=== PATIENT | female | born 1990 | race Caucasian/White ===

== ENCOUNTER → 2017-12-13 21:08 | Observation (INO) ==
[2017-12-13 18:12] LABS: Bilirubin,Urine Negative (Negative); Blood,Urine Negative (Negative); Clarity,Urine Cloudy (Clear); Color,Urine Yellow (Yellow); Glucose,Urine (UA) Normal (Normal); Ketones,Urine Trace mg/dL (Negative); Leukocyte Esterase,Urine Negative (Negative); Nitrite,Urine Negative (Negative); Protein,Urine 30 mg/dL (Neg-Trace); Specific Gravity,Urine 1.022 (1.010-1.025); Urobilinogen,Urine Normal (Normal)
[2017-12-13 18:14] LABS: Bacteria,Urine None Seen per hpf (None-Few); Hyaline Casts,Urine None Seen per lpf (None-Few); RBC,Urine 0-3 per hpf (0-3); Squamous Epithelial Cell,Urine Many per lpf (None-Few); WBC,Urine 0-3 per hpf (0-3)
[2017-12-13 18:23] LABS: Amphetamine Screen,Urine Negative ng/mL (Cutoff=1000); Barbiturate Screen,Urine Negative ng/mL (Cutoff=200); Benzodiazepines Screen,Urine Negative ng/mL (Cutoff=200); Cannabinoid Screen,Urine Negative ng/mL (Cutoff = 50); Cocaine Screen,Urine Negative ng/mL (Cutoff= 300); Creatinine,Urine 84 mg/dL; Opiate Screen,Urine Negative ng/mL (Cutoff=300); Phencyclidine Screen,Urine Negative ng/mL (Cutoff=25); Protein/Creatinine Ratio,Urine 0.55 mg/mg (0.00-0.20)
[2017-12-13 19:25] LABS: Basophils % 0.3 %; Eosinophils # 0.1 K/mcL (0.0-0.6); Eosinophils % 0.7 %; Hematocrit 35.9 % (35.3-44.9); Hemoglobin 12.3 g/dL (11.5-15.4); Immature Granulocytes % 0.7 % (0-4); Lymphocytes # 2.4 K/mcL (0.6-4.6); Lymphocytes % 18.2 %; Mean Corpuscular HGB Conc 34.3 g/dL (31.6-35.5); Mean Corpuscular Hemoglobin 28.9 pg (28.0-33.3); Mean Corpuscular Volume 84.5 fL (83.0-100.0); Mean Platelet Volume 10.6 fL (9.4-12.4); Monocytes # 0.8 K/mcL (0.0-1.3); Monocytes % 5.8 %; Neutrophils # 9.9 K/mcL (1.6-8.9); Platelet Count 234 K/mcL (140-400); Red Blood Count 4.25 M/mcL (3.82-4.97); Red Cell Distribution Width 13.3 % (11.5-14.5); Segmented Neutrophils % 74.3 %
[2017-12-13 19:54] LABS: Alanine Aminotransferase 19 Units/L (7-52); Aspartate Amino Transferase 22 Units/L (13-39); BUN/Creatinine Ratio 19 (6-26); Blood Urea Nitrogen 8 mg/dL (6-20); Lactate Dehydrogenase 154 Units/L (140-271); Uric Acid 4.2 mg/dL (2.3-7.6); eGFR For African Americans > 60 (> 60); eGFR For Non-African Americans > 60 (> 60)
--- NOTE | 2017-12-13 20:40 | OB/GYN Progress Note ---
Date of Encounter: 12/13/17 Time of Encounter: 20:37 - Assessment and Plan (1) with abdominal pain of right upper quadrant, antepartum Current Visit: Yes Status: Acute UA - mild dehydration; 1000mL fluid bolus given UPC - 0.55 PIH labs - WNL CBC - WNL NST - Reactive BPs normal Discussed POC with Dr Vaughan Discharged home with PTL, Pre-E precautions, kick counts, encouraged increased oral hydration Follow up in office on Sunday for NST and ; patient to call tomorrow to schedule/nurse sent note to call patient as well Discussed when to return to triage; patient and repeat when to return and verbalize understanding. Deny any additional questions (2) 36 weeks gestation of Current Visit: Yes Status: Acute Subjective - Subjective Principal diagnosis: RUQ pain Interval history: Ms Johnson presents to triage with c/o RUQ pain for the past few days that has worsened over the week. She states that pain is a 3-7/10. She states she has had a soo and has been taking OTC antacids regularly for the past few weeks. She has had an uncomplicated first . She is seen by Dr Escamilla for her care. She denies headache, vision changes, facial edema that persists throughout the day, vaginal bleeding, contractions, and vaginal discharge. She states positive movement. Antepartum ROS: new complaints (RUQ pain), movement normal Objective - Exam FHR: auscultation normal, category 1 Auscultation: bilateral: normal Abdomen: Present: normal appearance, soft, gravid. Absent: tenderness Uterus: Present: normal. Absent: firm, bogginess, tenderness Cervical dilation: FT Cervix effacement: 70 station: -1/0 - Labs Labs: Abnormal lab results WBC 13.3 K/mcL (4.3-11.1) H 12/13/17 19:14 Neutrophils # 9.9 K/mcL (1.6-8.9) H 12/13/17 19:14 Creatinine 0.43 mg/dL (0.60-1.20) L 12/13/17 19:14 Urine Clarity Cloudy (Clear) A 12/13/17 17:59 Urine Protein 30 mg/dL (Neg-Trace) H 12/13/17 17:59 Urine Ketones Trace mg/dL (Negative) H 12/13/17 17:59 Ur Squamous Epith Cells Many per lpf (None-Few) H 12/13/17 17:59 Protein/Creatinin Ratio 0.55 mg/mg (0.00-0.20) H 12/13/17 17:59 Urine Total Protein 46 mg/dL (1-14) H 12/13/17 17:59
[~2017-12-13 21:08] MED LIST: Ringers Solution, Lactated 1,000 ML IVC SCH
== END | disposition home or self-care (01) ==
LOC: 1NENULAB
PROVIDERS: ADMIT Advanced Practice Midwife; ATTEND Advanced Practice Midwife

== ENCOUNTER → 2017-12-15 13:24 | Observation (INO) ==
[2017-12-15 12:24] LABS: Basophils % 0.3 %; Eosinophils # 0.1 K/mcL (0.0-0.6); Eosinophils % 0.5 %; Hematocrit 39.4 % (35.3-44.9); Hemoglobin 13.2 g/dL (11.5-15.4); Immature Granulocytes % 0.6 % (0-4); Lymphocytes % 16.8 %; Mean Corpuscular HGB Conc 33.5 g/dL (31.6-35.5); Mean Corpuscular Hemoglobin 28.4 pg (28.0-33.3); Mean Corpuscular Volume 84.7 fL (83.0-100.0); Mean Platelet Volume 10.5 fL (9.4-12.4); Monocytes # 0.7 K/mcL (0.0-1.3); Monocytes % 6.1 %; Neutrophils # 8.9 K/mcL (1.6-8.9); Platelet Count 257 K/mcL (140-400); Red Blood Count 4.65 M/mcL (3.82-4.97); Red Cell Distribution Width 13.2 % (11.5-14.5); Segmented Neutrophils % 75.7 %
[2017-12-15 12:25] LABS: Bilirubin,Urine Negative (Negative); Blood,Urine Negative (Negative); Clarity,Urine Cloudy (Clear); Color,Urine Yellow (Yellow); Glucose,Urine (UA) Normal (Normal); Ketones,Urine Trace mg/dL (Negative); Leukocyte Esterase,Urine Small (Negative); Nitrite,Urine Negative (Negative); PH,Urine 6.5 pH Units (5.0-8.0); Protein,Urine Trace mg/dL (Neg-Trace); Specific Gravity,Urine 1.011 (1.010-1.025); Urobilinogen,Urine Normal (Normal)
[2017-12-15 12:27] LABS: Bacteria,Urine Few per hpf (None-Few); Hyaline Casts,Urine Few per lpf (None-Few); RBC,Urine 0-3 per hpf (0-3); Squamous Epithelial Cell,Urine Many per lpf (None-Few); WBC,Urine 15-30 per hpf (0-3)
[2017-12-15 12:43] LABS: Alanine Aminotransferase 21 Units/L (7-52); Aspartate Amino Transferase 26 Units/L (13-39); BUN/Creatinine Ratio 11 (6-26); Blood Urea Nitrogen 6 mg/dL (6-20); Lactate Dehydrogenase 164 Units/L (140-271); Uric Acid 4.9 mg/dL (2.3-7.6); eGFR For African Americans > 60 (> 60); eGFR For Non-African Americans > 60 (> 60)
[2017-12-15 12:51] LABS: Protein/Creatinine Ratio,Urine 0.63 mg/mg (0.00-0.20)
[2017-12-15 12:52] LABS: Amphetamine Screen,Urine Negative ng/mL (Cutoff=1000); Barbiturate Screen,Urine Negative ng/mL (Cutoff=200); Benzodiazepines Screen,Urine Negative ng/mL (Cutoff=200); Cannabinoid Screen,Urine Negative ng/mL (Cutoff = 50); Cocaine Screen,Urine Negative ng/mL (Cutoff= 300); Opiate Screen,Urine Negative ng/mL (Cutoff=300); Phencyclidine Screen,Urine Negative ng/mL (Cutoff=25)
--- NOTE | 2017-12-15 13:16 | Discharge Summary ---
Date of Encounter: 12/15/17 Time of Encounter: 13:15 - Discharge Diagnosis (1) Proteinuria affecting in third trimester Priority: Primary Status: Acute Comments: Patient give supplies and instructions for 24 hour urine Patient to take urine to lab on Sunday12/17/17 (2) 36 weeks gestation of Priority: Secondary Status: Acute Comments: Patient admitted for observation. (3) NST (non-stress test) reactive on surveillance Priority: Secondary Status: Acute Comments: FHR baseline 125 bpm moderate variability +15x15 accels no decels noted. Cat. 1 tracing. - Discharge Medications Home Medications: Dha 1 tab PO DAILY 06/26/17 [History] Allergies/Adverse Reactions: 3 Allergy/AdvReac Type Severity Reaction Status Date / Time Amoxicillin Allergy Mild Hives Verified 12/13/17 17:51 bacitracin Allergy Mild Hives Verified 12/13/17 17:51 [From Neosporin ([id number])] Neomycin Allergy Mild Hives Verified 12/13/17 17:51 [From Neosporin ([id number])] Penicillins Allergy Mild Hives Verified 12/13/17 17:51 polymyxin B Allergy Mild Hives Verified 12/13/17 17:51 [From Neosporin ([id number])] egg Allergy Diarrhea Verified 12/13/17 17:51 Data Procedures and tests throughout hospitalization: Laboratory Tests 12/15/17 12/15/17 12/15/17 11:51 11:51 12:08 WBC 11.8 H RBC 4.65 Hgb 13.2 Hct 39.4 MCV 84.7 MCH 28.4 MCHC 33.5 RDW 13.2 Plt Count 257 MPV 10.5 Immature Gran % 0.6 Seg Neutrophils % 75.7 Lymphocytes % 16.8 Monocytes % 6.1 Eosinophils % 0.5 Basophils % 0.3 Neutrophils # 8.9 Lymphocytes # 2.0 Monocytes # 0.7 Eosinophils # 0.1 Basophils # 0.0 BUN 6 Creatinine 0.54 L Est GFR ( Amer) > 60 Est GFR (Non-Af Amer) > 60 BUN/Creatinine Ratio 11 Uric Acid 4.9 AST 26 ALT 21 Lactate Dehydrogenase 164 Urine Color Urine Clarity Urine pH Ur Specific [place] Urine Protein Urine Glucose (UA) Urine Ketones Urine Blood Urine Nitrite Urine Bilirubin Urine Urobilinogen Ur Leukocyte Esterase Urine Microscopic RBC Urine Microscopic WBC Ur Squamous Epith Cells Urine Bacteria Hyaline Casts Ur Culture Indicated? Urine Creatinine Protein/Creatinin Ratio Urine Total Protein Urine Opiates Screen Negative Ur Barbiturates Screen Negative Ur Phencyclidine Scrn Negative Ur Amphetamines Screen Negative U Benzodiazepines Scrn Negative Urine Cocaine Screen Negative U Marijuana (THC) Screen Negative 12/15/17 12/15/17 12:08 12:08 WBC RBC Hgb Hct MCV MCH MCHC RDW Plt Count MPV Immature Gran % Seg Neutrophils % Lymphocytes % Monocytes % Eosinophils % Basophils % Neutrophils # Lymphocytes # Monocytes # Eosinophils # Basophils # BUN Creatinine Est GFR ( Amer) Est GFR (Non-Af Amer) BUN/Creatinine Ratio Uric Acid AST ALT Lactate Dehydrogenase Urine Color Yellow Urine Clarity Cloudy A Urine pH 6.5 Ur Specific [place] 1.011 Urine Protein Trace Urine Glucose (UA) Normal Urine Ketones Trace H Urine Blood Negative Urine Nitrite Negative Urine Bilirubin Negative Urine Urobilinogen Normal Ur Leukocyte Esterase Small H Urine Microscopic RBC 0-3 Urine Microscopic WBC 15-30 H Ur Squamous Epith Cells Many H Urine Bacteria Few Hyaline Casts Few Ur Culture Indicated? NO. A Urine Creatinine 59 Protein/Creatinin Ratio 0.63 H Urine Total Protein 37 H Urine Opiates Screen Ur Barbiturates Screen Ur Phencyclidine Scrn Ur Amphetamines Screen U Benzodiazepines Scrn Urine Cocaine Screen U Marijuana (THC) Screen Labs on day of discharge: Labs from last 24 hours 12/15/17 12/15/17 12/15/17 12:08 12:08 12:08 WBC RBC Hgb Hct MCV MCH MCHC RDW Plt Count MPV Immature Gran % Seg Neutrophils % Lymphocytes % Monocytes % Eosinophils % Basophils % Neutrophils # Lymphocytes # Monocytes # Eosinophils # Basophils # BUN Creatinine Est GFR ( Amer) Est GFR (Non-Af Amer) BUN/Creatinine Ratio Uric Acid AST ALT Lactate Dehydrogenase Urine Color Yellow Urine Clarity Cloudy A Urine pH 6.5 Ur Specific [place] 1.011 Urine Protein Trace Urine Glucose (UA) Normal Urine Ketones Trace H Urine Blood Negative Urine Nitrite Negative Urine Bilirubin Negative Urine Urobilinogen Normal Ur Leukocyte Esterase Small H Urine Microscopic RBC 0-3 Urine Microscopic WBC 15-30 H Ur Squamous Epith Cells Many H Urine Bacteria Few Hyaline Casts Few Ur Culture Indicated? NO. A Urine Creatinine 59 Protein/Creatinin Ratio 0.63 H Urine Total Protein 37 H Urine Opiates Screen Negative Ur Barbiturates Screen Negative Ur Phencyclidine Scrn Negative Ur Amphetamines Screen Negative U Benzodiazepines Scrn Negative Urine Cocaine Screen Negative U Marijuana (THC) Screen Negative 12/15/17 12/15/17 11:51 11:51 WBC 11.8 H RBC 4.65 Hgb 13.2 Hct 39.4 MCV 84.7 MCH 28.4 MCHC 33.5 RDW 13.2 Plt Count 257 MPV 10.5 Immature Gran % 0.6 Seg Neutrophils % 75.7 Lymphocytes % 16.8 Monocytes % 6.1 Eosinophils % 0.5 Basophils % 0.3 Neutrophils # 8.9 Lymphocytes # 2.0 Monocytes # 0.7 Eosinophils # 0.1 Basophils # 0.0 BUN 6 Creatinine 0.54 L Est GFR ( Amer) > 60 Est GFR (Non-Af Amer) > 60 BUN/Creatinine Ratio 11 Uric Acid 4.9 AST 26 ALT 21 Lactate Dehydrogenase 164 Urine Color Urine Clarity Urine pH Ur Specific [place] Urine Protein Urine Glucose (UA) Urine Ketones Urine Blood Urine Nitrite Urine Bilirubin Urine Urobilinogen Ur Leukocyte Esterase Urine Microscopic RBC Urine Microscopic WBC Ur Squamous Epith Cells Urine Bacteria Hyaline Casts Ur Culture Indicated? Urine Creatinine Protein/Creatinin Ratio Urine Total Protein Urine Opiates Screen Ur Barbiturates Screen Ur Phencyclidine Scrn Ur Amphetamines Screen U Benzodiazepines Scrn Urine Cocaine Screen U Marijuana (THC) Screen Date of admission: 12/15/17 11:42 Discharging clinician: Li Guerra Anticipated date of discharge: 12/15/17 - Patient Status Disposition: Home, Self-Care Condition: Good Functional capacity at discharge: independent ambulation - Discharge Instructions Follow Up With: Syeda Escamilla MD [Partnered Physician] - - Diet and Activity Activity: increase activity as tolerated Diet: regular diet Hospital Course CIRCULATOR Hospital course: Patient is a 27 y/o at 36w2d presents to labor and delivery with complaints of seeing flashing lights and feeling dizzy while attending childbirth education class. Patient reports she drank a cup of water and had cheerios for breakfast. Patient denies headache at this time. Patient reports low back pain and lower abdominal cramping. Patient also reports +FM. Patient denies any vaginal bleeding or leaking of fluid. Patient reports she was a fingertip at last appointment. BPs WNL. Lab work discussed with Dr. Escamilla. Will send patient home with supplies and directions for 24 hour urine to turn in on Sunday12/17/17. SVE today was FT and Thick. FHR 125 bpm moderate variability +15x15 accels no decels noted. Contractions are irregular. Cat. 1 tracing. Time Attestation: Total time spent providing and/or coordinating discharge services: Time Spent: Less than 30 minutes Exam - Constitutional General appearance IM: A&O X 3, pleasant, answers questions appropriately - Respiratory Respiratory exam: Present: CTAB - Cardiovascular Cardiovascular exam IM: Present: RRR, +S1, +S2 - GI/Abdominal GI/Abdominal exam IM: normal bowel sounds - Extremities Exam Extremities exam IM: Present: full ROM, normal capillary refill, normal inspection - Neurological Exam Neurological exam: alert, oriented X3, reflexes normal - VTE Reasons for not Prescribing Prophylaxis: Treatment not Indicated - Low risk for VTE
== END | disposition home or self-care (01) ==
LOC: 1NENULAB
PROVIDERS: ADMIT Advanced Practice Midwife; ATTEND Advanced Practice Midwife

== ENCOUNTER 2017-12-20 06:00 | Inpatient (IN) ==
[2017-12-20] MEDS ORDERED: miSOPROStol 25 MCG TABLET PO PRN (06:36)
[2017-12-20] MEDS ORDERED: Ondansetron 4 MG/2 ML VIAL IVP PRN (06:36)
[2017-12-20] MEDS ORDERED: Naloxone 0.4 MG/ML INJ IVP PRN (06:36)
[2017-12-20] MEDS ORDERED: Metoclopramide 10 MG/2 ML VIAL IVP PRN (06:36)
[2017-12-20] MEDS ORDERED: Famotidine 20 MG/2 ML VIAL IVP PRN (06:36)
[2017-12-20] MEDS ORDERED: *HR* Nalbuphine 10 MG/ML AMPUL IVP PRN (06:36)
--- NOTE | 2017-12-20 06:39 | OB/GYN History & Physical ---
Date of Encounter: 12/20/17 Time of Encounter: 06:38 Assessment and Plan (1) 37 weeks gestation of Current visit: Yes Status: Acute Plan for IOL. complicated by proteinuria. Patient given cytotec. (2) Proteinuria affecting in third trimester Current visit: No Status: Acute History of Present Illness Chief complaint: Induction of Labor HPI: Ms. Johnson is a 27 year old female at 37w0d presents to L&D for induction of labor. complicated by proteinuria with protein/Cr was 0.63 at its highest on 12/15/17, most recent.was 0.34 on 12/17/17. + good FM. Denies LOF or VB. Denies headaches, vision changes. History of BLE edema during . Labs: Blood type A+ Rubella immune Hepatitis nonreactive T. pallidum negative Varicella positive GBS negative Past Med Surg Social Fam HX - Past Medical History Medical history: other Psychiatric history: no psych history - Past Surgical History Surgical History: cholecystectomy - Social History Smoking Status: Never smoker Smokeless Tobacco Status: No Alcohol use: none Drug use: none - Family History Mother Adopted: No Family Member Ethnicity: Non- Living Status: Still Living Hx Family Cardiac Disorders: Yes Hx Family Respiratory Disorders: No Hx Family Cancer: Yes Hx Family GI Disorders: No Hx Family Genitourinary Disorders: No Hx Family Endocrine Disorder: No Hx Family Musculoskeletal Disorders: No Hx Family Neuromuscular Disorders: No Hx Family Neurologic Disorders: No Hx Family HEENT Disorders: No Hx Family Autoimmune Disorders: No Hx Family Reproductive Disorders: No Hx Family Psychosocial Disorders: No Hx Family Medical Disorders: No Obstetrical History - Pregnancies : 1 Para: 0 Medications and Allergies Dha 1 tab PO DAILY 06/26/17 [History] 3 Allergy/AdvReac Type Severity Reaction Status Date / Time Amoxicillin Allergy Mild Hives Verified 12/13/17 17:51 bacitracin Allergy Mild Hives Verified 12/13/17 17:51 [From Neosporin ([id number])] Neomycin Allergy Mild Hives Verified 12/13/17 17:51 [From Neosporin ([id number])] Penicillins Allergy Mild Hives Verified 12/13/17 17:51 polymyxin B Allergy Mild Hives Verified 12/13/17 17:51 [From Neosporin ([id number])] egg Allergy Diarrhea Verified 12/13/17 17:51 Review of System OB All systems PM: reviewed and no additional remarkable complaints except as stated Exam - Constitutional Constitutional: well developed, well nourished, no acute distress - HEENT HEENT: Normocephaly, Mucus Membranes Moist - Neck Neck exam: normal inspection, supple - Lungs Respiratory exam: CTAB - Cardiovascular Cardiovascular exam: RRR, +S1, +S2 - Abdomen Abdomen: Present: bowel sounds normal, gravid, non tender - Extremities Extremities exam: pedal edema (1+ bilateral) Deep Tendon Reflex Grade: 2+ Normal Results Result Diagrams: 12/20/17 07:00 12/20/17 07:00 All other labs normal.
[2017-12-20] MEDS ORDERED: Ringers Solution, Lactated 1,000 ML IVC SCH (06:45)
[2017-12-20 06:56] LABS: Amphetamine Screen,Urine Negative ng/mL (Cutoff=1000); Barbiturate Screen,Urine Negative ng/mL (Cutoff=200); Benzodiazepines Screen,Urine Negative ng/mL (Cutoff=200); Cannabinoid Screen,Urine Negative ng/mL (Cutoff = 50); Cocaine Screen,Urine Negative ng/mL (Cutoff= 300); Opiate Screen,Urine Negative ng/mL (Cutoff=300); Phencyclidine Screen,Urine Negative ng/mL (Cutoff=25)
[2017-12-20 07:18] LABS: Basophils % 0.3 %; Eosinophils # 0.1 K/mcL (0.0-0.6); Eosinophils % 1.1 %; Hematocrit 35.7 % (35.3-44.9); Hemoglobin 12.6 g/dL (11.5-15.4); Immature Granulocytes % 0.6 % (0-4); Lymphocytes # 1.6 K/mcL (0.6-4.6); Lymphocytes % 15.2 %; Mean Corpuscular HGB Conc 35.3 g/dL (31.6-35.5); Mean Corpuscular Hemoglobin 29.7 pg (28.0-33.3); Mean Corpuscular Volume 84.2 fL (83.0-100.0); Mean Platelet Volume 10.9 fL (9.4-12.4); Monocytes # 0.6 K/mcL (0.0-1.3); Monocytes % 6.1 %; Neutrophils # 7.9 K/mcL (1.6-8.9); Platelet Count 235 K/mcL (140-400); Red Blood Count 4.24 M/mcL (3.82-4.97); Red Cell Distribution Width 13.2 % (11.5-14.5); Segmented Neutrophils % 76.7 %
[2017-12-20] MEDS ORDERED: Epidural Premix (fent/bupiv) 110 ML EP SCH (07:30)
[2017-12-20 07:38] LABS: Alanine Aminotransferase 16 Units/L (7-52); Aspartate Amino Transferase 21 Units/L (13-39); BUN/Creatinine Ratio 13 (6-26); Blood Urea Nitrogen 6 mg/dL (6-20); Lactate Dehydrogenase 143 Units/L (140-271); Uric Acid 4.7 mg/dL (2.3-7.6); eGFR For African Americans > 60 (> 60); eGFR For Non-African Americans > 60 (> 60)
--- NOTE | 2017-12-20 08:11 | Anesthesia Evaluation PreOp ---
Date of Encounter: 12/20/17 Time of Encounter: 07:50 - Past History Planned Operation: vaginal del, G1 37wk Cardiac History: Denies any Significant Hx Pulmonary History: Denies Any Significant HX PHOTOGRAPHER HELPER History: Other (BMI 36) Other Medical History: Other (proteinuria, upper quad pain, peripheral edema 37wk induction) Anesthesia History: No Prior Anesthetic Complications, Past Anesthesia Alcohol Use: none Drug use: none Medications and Allergies Dha 1 tab PO DAILY 06/26/17 [History] 3 Allergy/AdvReac Type Severity Reaction Status Date / Time Amoxicillin Allergy Mild Hives Verified 12/13/17 17:51 bacitracin Allergy Mild Hives Verified 12/13/17 17:51 [From Neosporin ([id number])] Neomycin Allergy Mild Hives Verified 12/13/17 17:51 [From Neosporin ([id number])] Penicillins Allergy Mild Hives Verified 12/13/17 17:51 polymyxin B Allergy Mild Hives Verified 12/13/17 17:51 [From Neosporin ([id number])] egg Allergy Diarrhea Verified 12/13/17 17:51 Anesthesia Results - Labs 12/20/17 07:00 12/20/17 07:00 Anesthesia Exam - HEENT Pupil (Motor): Pupils equal Mallampati: II Teeth: Normal Oral Opening: Greater than 3 - PHOTOGRAPHER HELPER LOC: Oriented PHOTOGRAPHER HELPER Motor: Normal RUE, Normal LUE, Normal RLE, Normal LLE, Normal Face PHOTOGRAPHER HELPER Sensory: Normal: RUE, LUE, RLE, LLE, Face - Cardiac Rhythm: Regular Murmur: None - Pulmonary Breath Sounds: bilateral Clear Respiratory Effort: Symmetrical Anesthesia Assess/Plan ASA Score: 2 Modified [place] Scale for Level of Consciousness: Cooperative, oriented, and tranquil Anesthetic Plan: General, Regional Monitoring Plan: Standard Monitors Recovery Plan: PACU
--- NOTE | 2017-12-20 12:04 | OB Labor Progress Note ---
Date of Encounter: 12/20/17 Time of Encounter: 12:03 Labor Progress Note - Subjective Subjective: Pt states feeling some contractions - Cervix Cervix: 2/80/-2 - Heart Tones Heart Tones: 135/moderate/+accels/-decels - Interventions Interventions: Cervical moreno placed - Plan Plan: Continue current management plan Nuabin and epidural as desired GBS- Anticipate
--- NOTE | 2017-12-20 16:34 | OB/GYN Procedure Note ---
Delivery - Delivery Date: 12/20/17 Provider: Lisandra Trotter Intrapartum events: none Delivery induction: none Delivery monitor: external FHT, external uterine, internal FHT, internal uterine Anesthesia: epidural Quantitated Blood Loss: 150 - Infant (s) Infant A Infant Delivery Date: 12/20/17 Infant Delivery Time: 15:43 Presentation: vertex Position: OA Route of delivery: Gender: Female Viability: Viable Pounds: 6 Ounces: 5 Weight Gram: 2880 kg at 1 minute: 4 at 5 mins: 9 Shoulder Dystocia: not encountered Specimens collected: cord blood, venous cord gases, arterial cord gases Placenta: spontaneous Cord: 3 umbilical vessels - Repair Episiotomy: none Laceration Description: None - Complications Delivery complications: none - Disposition Mom disposition: stable in LDR [place] disposition: stable in LDR
[2017-12-20] MEDS ORDERED: Oxytocin 20 units/ LR 1000 mL 20 UNIT/1,000 ML BAG IVC SCH (18:30)
--- NOTE | 2017-12-20 20:13 | OB Labor Progress Note ---
Date of Encounter: 12/20/17 Time of Encounter: 20:13 Labor Progress Note - Subjective Subjective: Pt states feeling stronger contractions - Cervix Cervix: 4-5/80/-1 - Heart Tones Heart Tones: 145/moderate/+accels/-decels - [place]: 2-4 - Interventions Interventions: AROM at 1847 for clear fluid. - Plan Plan: Start pitocin per policy nuabin and epidural as desires Anticipate
[2017-12-20] MEDS ORDERED: Epidural Premix (fent/bupiv) 110 ML EP ONE (20:31)
[2017-12-20] MEDS ORDERED: Lidocaine/EPI 1:200k 2% PF 20 ML VIAL ONE (21:08)
[2017-12-20] MEDS ORDERED: Ringers Solution, Lactated 1,000 ML ONE (21:53)
--- NOTE | 2017-12-20 22:11 | Anesthesia Procedures ---
Date of Encounter: 12/20/17 Time of Encounter: 20:39 Procedures: Anesthesia - Epidural/Spinal Patient ID/Chart reviewed: Yes Patient examined: Yes OB Eval: Gestational age: 37 OB Eval: : 1 OB Eval: Contractions: Non-stressed pattern Consent Obtained: Yes Supplemental Oxygen: None/Room Air Site Prep: Aseptic Technique, Sterile prep and drape, 0.5% Chlorhexidine/Alcohol Patient position: upright Local Anesthetic: Lidocaine 1% Amount of Local Anesthetic used: 2 Touhy Needle Gauge: 18 Touhy Needle Depth (cm): 7 Catheter Depth at Skin (cm): 11 Test Dose (1.5% Lido + Epi): Volume given (mls): 3 Test Dose Result: Negative Loading Dose: Other: 10ml from solution Loading Dose Administered: Thru Catheter Infusion Med: 0.125% Bupivacaine w/ 2 mcg/ml Fentanyl Infusion Rate (mls/hr): [address]: Tegaderm, Tape Interspace Used: L3-L4 Loss of Resistance (IVET): Yes (saline) Blood: No CSF: No Paresthesia: No Procedure: vss thought procedures, FHR stable per RN's, 15 min post first epidural, c/o pain lower abd, sensory changes to T6 bilateral , bolus with 7ml of lido 2% with epi, no effect after 15 more min, decision to replace cath to diff level, cath removed with tip intact, complete re-prep as before, same procedure as noted above, cath threaded easy neg aspiration, 3ml lido with epi test dose neg, once sitting back 2ml more lido with epi given, relieve noted within 10min. RN remained at BS FHR monitored.
--- NOTE | 2017-12-21 01:20 | OB Labor Progress Note ---
Date of Encounter: 12/21/17 Time of Encounter: 01:18 Labor Progress Note - Subjective Subjective: Pt comfortable with epidural - Vital Signs Vital Signs: 121/78 - Cervix Cervix: 6/90/-1 - Heart Tones Heart Tones: 135/moderate/+accels/early and late decels - [place] Landen: IUPC placed - Interventions Interventions: IUPC placed - Plan Plan: Continue pitocin per policy anticipate
[2017-12-21] MEDS ORDERED: Epidural Premix (fent/bupiv) 110 ML EP ONE ×2 (01:50→07:58)
[2017-12-21] MEDS ORDERED: *HR* ROPIVACAINE 1% PF 100 MG/10 ML VIAL ONE (02:37)
--- NOTE | 2017-12-21 07:48 | OB Labor Progress Note ---
Date of Encounter: 12/21/17 Time of Encounter: 07:45 Labor Progress Note - Vital Signs Vital Signs: 125/82 - Cervix Cervix: 7/90/-1 - Heart Tones Heart Tones: 140/moderate/+accels/variable, lates - [place]: 2-5 - Plan Plan: Continue pitocin per policy frequent repositioning anticipate
[2017-12-21] MEDS ORDERED: *HR* FentaNYL (PF) 100 MCG/2 ML VIAL ONE (08:11)
[2017-12-21] MEDS ORDERED: *HR* Ropivacaine/PF 0.2% 20 ML VIAL ONE (08:11)
--- NOTE | 2017-12-21 08:20 | Anesthesia Progress Note ---
Date of Encounter: 12/21/17 Time of Encounter: 08:18 Anesthesia Note - Note Note: 12/21/17 08:18 bolus for break through pain ropivicaine 0.2% 5cc fentanyl 100mcg
--- NOTE | 2017-12-21 11:33 | OB/GYN Procedure Note ---
Delivery - Delivery Date: 12/21/17 Provider: Li Guerra Intrapartum events: none Delivery induction: AROM, oxytocin, moreno Delivery monitor: external FHT, internal uterine Anesthesia: epidural Quantitated Blood Loss: 200 - Infant (s) A Delivery Date: 12/21/17 Delivery Time: 10:50 Presentation: vertex Position: ROSALIND Route of delivery: Gender: Male Viability: Viable Pounds: 8 Ounces: 3 Weight Gram: 3.715 kg at 1 minute: 8 at 5 mins: 9 Shoulder Dystocia: not encountered Specimens collected: cord blood Placenta: spontaneous, uterine exploration Cord: 3 umbilical vessels - Repair Episiotomy: none Laceration Description: Vaginal (left, repaired with 3-0 vicryl) - Complications Delivery complications: none - Disposition Mom disposition: stable in LDR disposition: stable in LDR - Comments Comments: Called to LDR for SVE. Patient complete and +1. Patient prepped for vaginal delivery and placed in stirrups. Under maternal effort patient spontaneously delivered a viable male infant over an intact perineum. No nuchal cord, meconium or shoulder dystocia encountered. Infant was placed on maternal abdomen. Cord was clamped and cut after pulsation ceased. placed skin to skin with mother. A small left vaginal wall abrasion noted and 1 stitch was used to stop bleeding. Pericare provided, all counts correct. Both mother and stable in LDR for recovery.
[2017-12-21] MEDS ORDERED: Benzocaine/Menthol 56 GM AEROSOL SPRAY TP PRN (14:49)
[2017-12-21] MEDS ORDERED: Acetaminophen 325 MG TABLET PO PRN (14:49)
[2017-12-21] MEDS ORDERED: Prenatal Vit/FA 1 EACH TABLET PO SCH (14:49)
[2017-12-21] MEDS ORDERED: Lanolin 28 GM TUBE TP PRN (14:49)
[2017-12-21] MEDS ORDERED: Oxytocin 20 units/ LR 1000 mL 20 UNIT/1,000 ML BAG IVC SCH (14:49)
[2017-12-21] MEDS: Ibuprofen 600 MG TABLET PO PRN (21:13)
[2017-12-22 07:54] LABS: Basophils # 0.1 K/mcL (0.0-0.2); Basophils % 0.4 %; Eosinophils # 0.2 K/mcL (0.0-0.6); Eosinophils % 1.1 %; Hematocrit 35.9 % (35.3-44.9); Hemoglobin 11.6 g/dL (11.5-15.4); Immature Granulocytes % 0.5 % (0-4); Lymphocytes # 2.1 K/mcL (0.6-4.6); Lymphocytes % 11.6 %; Mean Corpuscular HGB Conc 32.3 g/dL (31.6-35.5); Mean Corpuscular Hemoglobin 28.4 pg (28.0-33.3); Mean Corpuscular Volume 87.8 fL (83.0-100.0); Mean Platelet Volume 11.2 fL (9.4-12.4); Monocytes # 1.2 K/mcL (0.0-1.3); Monocytes % 6.7 %; Neutrophils # 14.6 K/mcL (1.6-8.9); Platelet Count 211 K/mcL (140-400); Red Blood Count 4.09 M/mcL (3.82-4.97); Red Cell Distribution Width 13.7 % (11.5-14.5); Segmented Neutrophils % 79.7 %
[2017-12-22 08:25] VITALS: BP 111/77
--- NOTE | 2017-12-22 10:28 | Discharge Summary ---
Date of Encounter: 12/22/17 Time of Encounter: 10:26 - Discharge Diagnosis (1) Vaginal delivery Priority: Primary Status: Acute Comments: Feeling well-pain well controlled with by mouth pain meds Tolerating regular diet Voiding independently Passing flatus, but no BM yet Lochia light Using ice packs for perineum Ambulating independently Discharge home today (2) Breast feeding status of mother Priority: Secondary Status: Acute Comments: Breast pump Rx given when necessary Breast-feeding well - Discharge Medications Prescriptions: Ibuprofen [Motrin] 600 mg PO Q6HR PRN #30 tablet PRN Reason: Cramping Breast Pump [BREAST PUMP] 1 each .ROUTE AD #1 each Docusate [Colace] 100 mg PO BID #60 capsule Home Medications: Dha 1 tab PO DAILY 06/26/17 [History] Acetaminophen [Tylenol] 650 mg PO Q6HR PRN tablet 12/22/17 [Rx] Benzocaine/Menthol Blanco [Dermoplast Blanco] 1 appl TP QID PRN aerosol 12/22/17 [Rx] Breast Pump [BREAST PUMP] 1 each .ROUTE AD #1 each 12/22/17 [Rx] Docusate [Colace] 100 mg PO BID #60 capsule 12/22/17 [Rx] Ibuprofen [Motrin] 600 mg PO Q6HR PRN #30 tablet 12/22/17 [Rx] Lanolin 1 appl TP QID PRN tube 12/22/17 [Rx] Allergies/Adverse Reactions: 3 Allergy/AdvReac Type Severity Reaction Status Date / Time Amoxicillin Allergy Mild Hives Verified 12/13/17 17:51 bacitracin Allergy Mild Hives Verified 12/13/17 17:51 [From Neosporin ([id number])] Neomycin Allergy Mild Hives Verified 12/13/17 17:51 [From Neosporin ([id number])] Penicillins Allergy Mild Hives Verified 12/13/17 17:51 polymyxin B Allergy Mild Hives Verified 12/13/17 17:51 [From Neosporin ([id number])] egg Allergy Diarrhea Verified 12/13/17 17:51 Data Procedures and tests throughout hospitalization: Laboratory Tests 12/20/17 12/20/17 12/20/17 06:30 07:00 07:00 WBC 10.3 RBC 4.24 Hgb 12.6 Hct 35.7 MCV 84.2 MCH 29.7 MCHC 35.3 RDW 13.2 Plt Count 235 MPV 10.9 Immature Gran % 0.6 Seg Neutrophils % 76.7 Lymphocytes % 15.2 Monocytes % 6.1 Eosinophils % 1.1 Basophils % 0.3 Neutrophils # 7.9 Lymphocytes # 1.6 Monocytes # 0.6 Eosinophils # 0.1 Basophils # 0.0 BUN 6 Creatinine 0.47 L Est GFR ( Amer) > 60 Est GFR (Non-Af Amer) > 60 BUN/Creatinine Ratio 13 Uric Acid 4.7 AST 21 ALT 16 Lactate Dehydrogenase 143 Urine Opiates Screen Negative Ur Barbiturates Screen Negative Ur Phencyclidine Scrn Negative Ur Amphetamines Screen Negative U Benzodiazepines Scrn Negative Urine Cocaine Screen Negative U Marijuana (THC) Screen Negative Hep Bs Antigen 12/20/17 12/22/17 19:06 06:55 WBC 18.3 H D RBC 4.09 Hgb 11.6 Hct 35.9 MCV 87.8 MCH 28.4 MCHC 32.3 RDW 13.7 Plt Count 211 MPV 11.2 Immature Gran % 0.5 Seg Neutrophils % 79.7 Lymphocytes % 11.6 Monocytes % 6.7 Eosinophils % 1.1 Basophils % 0.4 Neutrophils # 14.6 H Lymphocytes # 2.1 Monocytes # 1.2 Eosinophils # 0.2 Basophils # 0.1 BUN Creatinine Est GFR ( Amer) Est GFR (Non-Af Amer) BUN/Creatinine Ratio Uric Acid AST ALT Lactate Dehydrogenase Urine Opiates Screen Ur Barbiturates Screen Ur Phencyclidine Scrn Ur Amphetamines Screen U Benzodiazepines Scrn Urine Cocaine Screen U Marijuana (THC) Screen Hep Bs Antigen Nonreactive Labs on day of discharge: Labs from last 24 hours 12/22/17 06:55 WBC 18.3 H D RBC 4.09 Hgb 11.6 Hct 35.9 MCV 87.8 MCH 28.4 MCHC 32.3 RDW 13.7 Plt Count 211 MPV 11.2 Immature Gran % 0.5 Seg Neutrophils % 79.7 Lymphocytes % 11.6 Monocytes % 6.7 Eosinophils % 1.1 Basophils % 0.4 Neutrophils # 14.6 H Lymphocytes # 2.1 Monocytes # 1.2 Eosinophils # 0.2 Basophils # 0.1 Date of admission: 12/20/17 06:19 Primary care physician: Mindi Stroud MD Consults: 12/21/17 14:49 Consult to Screener Perfumer [CONS] Routine Comment: Vaginal delivery, consult needed Discharging clinician: Denae Roth Anticipated date of discharge: 12/22/17 - Patient Status Disposition: Home, Self-Care Condition: Good Functional capacity at discharge: independent ambulation Overall status at discharge: patient is progressing back to baseline - Discharge Instructions Instructions: Your Cullen's Appearance (DC), Caring for Your Baby (GEN), Lay Person CPR on Newborns (DC), Caring for Your Breastfed Baby (GEN) Follow Up With: Mindi Stroud MD [Primary Care Provider] - Syeda Escamilla MD [Partnered Physician] - Additional Instructions: ATTEND FOLLOW-UP APPOINTMENT Perineal Care: Always wipe front to back Change your pad frequently Use your joe bottle with warm water and spray front to back Do not douche, use tampons, have sexual intercourse or put anything in your vagina for 4-6 weeks after delivery Bleeding: Vaginal bleeding can last up to 6 weeks Your menstrual period may return as early as 6 weeks after you are discharged from the hospital [place]/Stitches Care: Vaginal Delivery Vaginal stitches will dissolve within 4-6 weeks Follow perineal care instructions Care Stitches will dissolve on their own If you have zoltan, they will need to be removed in the doctors office within 5-7 days. You may shower with stitches or zoltan Drip plan or soapy water over the incision to clean. Pat dry gently with a clean towel. Make sure you completely dry under the skin folds DO NOT USE powders, lotions, rubbing alcohol or hydrogen peroxide on or around your incision. This will slow your wound healing It is normal to have soreness, burning, tingling, itchiness and/or numbness as your incision heals Activity: Rest frequently Do not lift anything heavier than a gallon of milk, up to 10-15 pounds No driving for 1-2 weeks for Vaginal delivery No driving for 2-4 weeks for delivery Take stairs slowly, one at a time Gradually increase your daily activity until you are back to your normal routine Do not exercise until you have had your follow-up appointment Bathing: Take a shower daily Do not take a tub bath for the first 4 weeks Diet: Drink plenty of water and fruit juices Eat a well-balanced diet with foods high in fiber such as fruits and vegetables Depression: Your hormones have a major impact on your feelings and emotions. Hormone imbalance may cause changes in your mood, creating unfamiliar thoughts and actions. Support is available to help you understand and cope with these feelings and mood changes. If you answer yes to any of the following questions, please call your health care provider: Are you having trouble sleeping? Are you feeling isolated? Have you lost your appetite? Are you having thoughts of hurting yourself or others? WARNING SIGNS: Heavy bleeding from the vagina (blood is bright red and soaks a sanitary pad in an hour or less.) Passing a blood clot larger than your fist Discharge from the vagina that has a bad odor Temperature over 100.4 F, or if you feel cold and have chills An episiotomy site that is warm, swollen or oozing. Use a mirror if needed Urination (pee) that is painful, very red and swollen or leaking fluid An incision that is painful, very red and swollen and leaking fluid An incision that has come open Breasts that are painful or full with flu like symptoms Redness, warmth or swelling in the calf of your leg Trouble breathing, dizziness, visual disturbance or faintness *Notify your health care provider immediately or go to the nearest Emergency Room if you experience any of the above signs.* To contact the nurses station 24 hours a day, For non-urgent, routine questions, please call the office at - Diet and Activity Activity: increase activity as tolerated Diet: regular diet Hospital Course Reason for admission: induction of labor, IUP at term Delivery: Episiotomy: none Laceration: vaginal side wall Other procedures: none complications: none Discharge diagnosis: IUP at term delivered baby: male Time Attestation: Total time spent providing and/or coordinating discharge services: Time Spent: Less than 30 minutes Exam - Constitutional Vitals: Temp Pulse Resp BP Pulse Ox 98.0 F 91 12 111/77 97 12/22/17 08:00 12/22/17 08:00 12/22/17 08:00 12/22/17 08:00 12/22/17 08:00 General appearance IM: A&O X 3 - Respiratory Respiratory exam: Present: CTAB - Cardiovascular Cardiovascular exam IM: Present: RRR, +S1, +S2 - GI/Abdominal GI/Abdominal exam IM: normal bowel sounds, no peritoneal signs - Rectal Rectal exam: deferred - Uterine Tone: Firm Uterus Position: 1 Finger Below Umbilicus, Midline - Extremities Exam Extremities exam IM: Present: normal inspection, radial pulses palpable and symmetrical - Neurological Exam Neurological exam: alert, oriented X3 - Psychiatric Additional comments: Patient denies history of anxiety and depression. Signs and symptoms of depression discussed and she and her partner verbalizes when to call for help. - Other Additional findings: Breasts: Nipples intact without erythema, breasts soft, nontender.
[2017-12-22] MEDS: Ibuprofen 600 MG TABLET PO PRN (12:22)
== END 2017-12-22 18:47 | disposition home or self-care (01) | DRG 775 ==
LOC: 1NENULAB 06:19 → 1NENUOBS 12-21 13:45
PROVIDERS: ADMIT Obstetrics & Gynecology; ATTEND Obstetrics & Gynecology